=== PATIENT | female | born 1990 | race Caucasian/White ===

== ENCOUNTER 2019-02-23 15:50 | Outpatient (CLI) | payer OTHER ==
[2019-02-23 17:18] LABS: TSH 1.78 mIU/l (0.465-4.685)
== END 2019-02-23 15:53 ==
LOC: LAB 15:50
PROVIDERS: ATTEND Nurse Practitioner Family
DX: E03.4 Atrophy of thyroid (acquired) (principal); E55.9 Vitamin D deficiency, unspecified
CPT/HCPCS: 36415; 82306; 84439; 84443